=== PATIENT | female | born 1955 | race Two or more races ===

== ENCOUNTER 2017-10-04 21:25 | Emergency (ER) | payer OTHER ==
[~2017-10-04] VITALS: Ht 154.9 cm; Wt 83.5 kg
[~2017-10-04 21:25] MED LIST: DIOVAN40 MG; DIOVAN40 MG PO; FLECTOR1 EACH TD; FLECTOR30 EA TP; HYDROCHLOROTHIA25 MG; NABUMETONE500 MG PO; NORVASC5 MG; TIZANIDINE HCL2 MG PO; ZANAFLEX4 MG PO
[2017-10-04] MEDS ORDERED: DIOVAN160 M1 PO (21:53)
== END 2017-10-05 11:51 | disposition home or self-care (01) ==
LOC: ER 21:25
DX: K27.9 Peptic ulcer, site unspecified, unspecified as acute or chronic, without hemorrhage or perforation (principal); R10.13 Epigastric pain; N39.0 Urinary tract infection, site not specified; B96.29 Other Escherichia coli [E. coli] as the cause of diseases classified elsewhere

== ENCOUNTER 2018-03-08 08:00 | Emergency (ER) | payer OTHER ==
[~2018-03-08] VITALS: Ht 157.5 cm; Wt 83.9 kg
[~2018-03-08 08:00] MED LIST changes: +DIOVAN160 M1 PO
== END 2018-03-08 13:54 | disposition home or self-care (01) ==
LOC: ER 08:00
DX: M23.92 Unspecified internal derangement of left knee (principal)

== ENCOUNTER 2018-03-12 06:00 | Outpatient (CLI) | payer OTHER | END 2018-03-12 08:37 | disposition home or self-care (01) | LOC: MRI 06:00 | DX: M12.862 Other specific arthropathies, not elsewhere classified, left knee (principal); M17.12 Unilateral primary osteoarthritis, left knee | CPT/HCPCS: 73721 ==

== ENCOUNTER 2018-03-16 14:09 | Outpatient (CLI) | payer OTHER | END 2018-03-16 17:41 | disposition home or self-care (01) | LOC: LAB 14:09 | DX: D68.8 Other specified coagulation defects (principal); E78.2 Mixed hyperlipidemia; N39.0 Urinary tract infection, site not specified; I10 Essential (primary) hypertension; R07.89 Other chest pain; Z01.818 Encounter for other preprocedural examination ==

== ENCOUNTER 2018-03-17 09:02 | Outpatient (CLI) | payer OTHER | END 2018-03-17 09:05 | disposition home or self-care (01) | LOC: LAB 09:02 | DX: D68.8 Other specified coagulation defects (principal); E78.2 Mixed hyperlipidemia; N39.0 Urinary tract infection, site not specified ==

== ENCOUNTER 2018-05-19 11:23 | Outpatient (CLI) | payer OTHER | END 2018-05-19 13:33 | disposition home or self-care (01) | LOC: SONOGRAMA 11:23 | DX: M12.9 Arthropathy, unspecified (principal); M19.90 Unspecified osteoarthritis, unspecified site ==

== ENCOUNTER 2018-06-30 13:18 | Outpatient (CLI) | payer OTHER | END 2018-06-30 13:23 | disposition home or self-care (01) | LOC: RAD 13:18 | DX: M25.561 Pain in right knee (principal); M25.562 Pain in left knee ==

== ENCOUNTER 2019-02-10 07:55 | Emergency (ER) | payer OTHER ==
[~2019-02-10] VITALS: Ht 160 cm; Wt 86.2 kg
[~2019-02-10 07:55] MED LIST changes: +CYMBALTA30 MG PO; +DICLOFENAC SOD100 G1 TOP
[2019-02-10] MEDS ORDERED: ALBUTEROL2.5 MG/3 M IH (08:35)
[2019-02-10] MEDS ORDERED: AVAPRO150 MG PO (08:36)
== END 2019-02-10 11:54 | disposition home or self-care (01) ==
LOC: ER 07:55
DX: J45.998 Other asthma (principal); J06.9 Acute upper respiratory infection, unspecified

== ENCOUNTER 2019-03-22 10:56 | Outpatient (CLI) | payer OTHER ==
[~2019-03-22 10:56] MED LIST changes: +ALBUTEROL2.5 MG/3 M IH; +AVAPRO150 MG PO
== END 2019-03-22 17:00 | disposition home or self-care (01) ==
LOC: SONOGRAMA 10:56
DX: N63.11 Unspecified lump in the right breast, upper outer quadrant (principal)

== ENCOUNTER 2019-04-11 15:31 | Outpatient (CLI) | payer OTHER | END 2019-04-11 15:43 | disposition home or self-care (01) | LOC: NUCLEAR 15:31 | DX: I87.2 Venous insufficiency (chronic) (peripheral) (principal) ==

== ENCOUNTER 2019-12-07 09:23 | Outpatient (CLI) | payer OTHER | END 2019-12-07 09:26 | disposition home or self-care (01) | LOC: RAD 09:23 | PROVIDERS: ATTEND Internal Medicine Cardiovascular Disease | DX: M12.851 Other specific arthropathies, not elsewhere classified, right hip (principal); M12.852 Other specific arthropathies, not elsewhere classified, left hip ==

== ENCOUNTER 2020-02-01 08:48 | Outpatient (CLI) | payer OTHER | END 2020-02-01 09:01 | disposition home or self-care (01) | LOC: SONOGRAMA 08:48 | PROVIDERS: ATTEND Specialist/Technologist, Other Nephrology | DX: R10.84 Generalized abdominal pain (principal); N18.3 Chronic kidney disease, stage 3 (moderate); R31.29 Other microscopic hematuria ==

== ENCOUNTER 2020-04-25 10:29 | Outpatient (CLI) | payer OTHER ==
[~2020-04-25 10:29] MED LIST changes: +DULOXETINE HCL40 MG PO; +NORFLEX100MG PO
== END 2020-04-25 15:00 | disposition home or self-care (01) ==
LOC: SONOGRAMA 10:29 → MAMO-SONO 10:45 → SONOGRAMA 15:00
PROVIDERS: ATTEND Internal Medicine Cardiovascular Disease
DX: N64.59 Other signs and symptoms in breast (principal); N63.11 Unspecified lump in the right breast, upper outer quadrant

== ENCOUNTER 2020-07-11 07:22 | Outpatient (CLI) | payer OTHER | END 2020-07-11 07:29 | disposition home or self-care (01) | LOC: RAD 07:22 | PROVIDERS: ATTEND Urology | DX: Q61.02 Congenital multiple renal cysts (principal); R31.21 Asymptomatic microscopic hematuria; R31.29 Other microscopic hematuria ==

== ENCOUNTER 2020-08-21 17:23 | Emergency (ER) | payer OTHER ==
[~2020-08-21] VITALS: Ht 152.4 cm; Wt 81.6 kg
[2020-08-21] MEDS ORDERED: AVAPRO75 MG PO (17:30)
[2020-08-22] MEDS ORDERED: ZITHROMAX500 MG PO (05:26)
[2020-08-22] MEDS ORDERED: ZINC GLUCONATE100 MG PO ×2 (05:26→05:29)
[2020-08-22] MEDS ORDERED: VITAMIN C500 M6 PO (05:26)
[2020-08-22] MEDS ORDERED: MELATONIN10 M5 PO (05:26)
== END 2020-08-22 05:40 | disposition home or self-care (01) ==
LOC: ER 17:23
DX: R10.13 Epigastric pain (principal); R50.83 Postvaccination fever; T50.B95A Adverse effect of other viral vaccines, initial encounter; Y92.89 Other specified places as the place of occurrence of the external cause; Z20.822 Contact with and (suspected) exposure to COVID-19

== ENCOUNTER 2020-08-28 12:43 | Inpatient (IN) | payer OTHER ==
[~2020-08-28] VITALS: Ht 160 cm; Wt 81.6 kg
[~2020-08-28 12:43] MED LIST changes: +AVAPRO75 MG PO; +MELATONIN10 M5 PO; +VITAMIN C500 M6 PO; +ZINC GLUCONATE100 MG PO; +ZITHROMAX500 MG PO
--- NOTE | 2020-08-28 13:00 | NUR ---
PACIENTE ALERTA Y ORIENTADO EN SHANE ABIDA ESFERAS, PRESENTANDO DIFICULTAD RESPIRATORIA, RESPIRACIONES ABDOMINALES, NON REBREATHING 100 % COLOCADO POR PARAMEDICOS QUIENES REFIEREN SPO2 66% COVID 19 + HACE [place]IL SEMANA. PACIENTE REFIERE QUE STEPHANIE LA SEMANA ESTUVO PRESENTANDO TOS SECA, DEBILIDAD Y FIEBRE Y ESTUVO ADMINISTRANDOSE TERAPIAS RESPIRATORIAS.
--- NOTE | 2020-08-28 13:30 | NUR ---
PACIENTE ALERTA Y ORIENTADA EN SHANE ABIDA ESFERAS, FIRMA DOCUMENTO DE DNR/DNI.
--- NOTE | 2020-08-28 13:51 | NUR ---
PACIENTE ALERTA Y ORIENTADA EN [facility]ANE ABIDA ESFERAS, ES ORIENTADA SOBRE ORDENES MEDICAS, REFIERE ENTENDER. SE COLECTAN MUESTRAS DE LABORAOTORIO, SE CANALIZA VENA Y SE ADMINISTRAN 0.9% NSS, SOLUMEDROL 125 MG Y 2 PUFF DE ALBUTEROL. MS BLAND DE TR REALIZA ABG Y COLOCA CANULA NASAL A 10 LT EN COMBINACION CON NON REBREATHING AL 100%. SE REALIZA EKG. PENDIENTE CT SCAN DE PECHO.
--- NOTE | 2020-08-28 16:00 | NUR ---
3:00PM SE RECIBE PTE ALERTA Y ORIENTADA X3 EN CAMA CON BARANDA ELEVADAS. SE RECIBE PTE CONECTADA A MONITOR CARDIACO Y OXIMETRIA. SE RECIBE PTE CON NON REBREATHING AL 100% Y CANULA A 10L. SE RECIBE PTE CANALIZADA EN MANO DERECHA AREA DEDRICK DE EDEMA Y DE ENROJECIMIENTO. SE RECIBE PTE CON DRIP DE .9NSS BAJANDO A 100ML/HR. S/V DE PTE P100,SAT70%,B/P140/81. PTE FIRMO PAPEL DE DIRECTRICES ANTICIPADAS DE DNR/DNI EN EL TURNO DEL 7@3. SE REORIENTA A PTE DE QUE SI QUIERE QUE SE ENTUBE O SE LE DE CPR EN ROBYN SI ES NECESARIO. LA PTE REFIERE DE QUE NO DESEA QUE SE LE DE CPR Y NO QUIERE QUE LA ENTUBEN. 3:30PM SE LE INSERTA RAZO DE MANERA ESTERIL Y DRENA 200ML DE ORINA COLOR AMARILLO INTENSO.SE EDUCA A PTE SOBRE TRATAMIENTO MEDICO. SE COLOCA PTE EN POSICION AWAN. 3:51PM SE LE NOTIFICA A SATURACION DE LA PTE EN 68%. LA MISMA ORDENA QUE SE LLAME A A BONILLA PARA QUE SE LE NOTIFIQUE SATURACION DE LA PTE. 3:57PM SE LLAMA A BONILLA Y SE LE NOTIFICA SATURACION DE LA PTE EN 68%. LA MISMA ORDENA COLOCARLE BPAP Y REPETIR ABG EN [place] HORA. 4:00PM SE LE NOTIFICA A MIS.SANDHYA TERAPISTA RESPIRATORIO SOBRE ORDEN DE COLOCAR BPAP Y LUEGO DE K[place] HORA REPETIR ABG DE LA PTE.
== END 2020-08-29 07:25 | disposition expired | DRG 177 ==
LOC: ER 12:43 → MEDJ 20:15
PROVIDERS: ADMIT Internal Medicine Cardiovascular Disease; ATTEND Internal Medicine Cardiovascular Disease
PROC: 4A033R1 Measurement of Arterial Saturation, Peripheral, Percutaneous Approach (ICD-10-PCS; 2020-08-28)
PROC: 5A09457 Assistance with Respiratory Ventilation, 24-96 Consecutive Hours, Continuous Positive Airway Pressure (ICD-10-PCS; principal; 2020-08-29)
PROC: 4A12X4Z Monitoring of Cardiac Electrical Activity, External Approach (ICD-10-PCS; 2020-08-29)
DX: U07.1 COVID-19 (principal); J12.82 Pneumonia due to coronavirus disease 2019; J96.01 Acute respiratory failure with hypoxia; I10 Essential (primary) hypertension; E11.9 Type 2 diabetes mellitus without complications; J44.9 Chronic obstructive pulmonary disease, unspecified; Z20.822 Contact with and (suspected) exposure to COVID-19; Z66 Do not resuscitate